=== PATIENT | male | born 1950 | race Caucasian/White ===

== ENCOUNTER 2021-08-08 17:56 | Outpatient (CLI) | payer MEDICARE, OTHER, SELFPAY ==
[2021-08-08 18:27] VITALS: BP 132/82; PULSE 96; RESP 18; TEMP 37.2; O2SAT 95; BMI 34.9
[2021-08-08] MEDS: 0.9% Saline Lock 10 ML Syringe IV (18:27)
[2021-08-08 19:03] VITALS: BP 132/82; PULSE 85; RESP 16; TEMP 37.7; O2SAT 93
[2021-08-08 20:00] VITALS: BP 125/72; PULSE 82; RESP 18; TEMP 37.8; O2SAT 95
== END 2021-08-08 20:03 | disposition home or self-care (01) ==
LOC: MS3OUT 17:57 → MS3 17:58
PROVIDERS: Referring Provider Nurse Practitioner Acute Care; Visit Provider Nurse Practitioner Acute Care
DX: U07.1 COVID-19 (principal)
CPT/HCPCS: J7050; M0245; Q0245; A4216